=== PATIENT | female | born 1960 | race Caucasian/White ===

== ENCOUNTER 2020-02-11 16:43 | Observation (INO) ==
[2020-02-11] MEDS ORDERED: Tetan/Diph/Pertus SYR(Tdap)* 0.5 ML SYR(BOOSTRIX) use SYR contains LATEX IM ONE (17:43)
[2020-02-11 18:16] LABS: ABS Lymphocytes 1.4 10^3/ul (1.0-4.8); Eosinophil % 0.7 %; Hematocrit 38 % (35-47); Hemoglobin 12.8 g/dL (12.0-16.0); Lymphocyte % 28.4 %; Mean Corpuscular HGB Conc 34 g/dL (31-36); Mean Corpuscular Hemoglobin 32 pg (27-31); Mean Corpuscular Volume 94 fL (80-97); Mean Platelet Volume 6.2 fL (7.4-10.4); Platelet Count 256 10^3/uL (150-450); Red Blood Count 4.05 10^6 /uL (3.70-4.87); Red Cell Distribution Width 13 % (10-15); White Blood Count 4.9 10^3/uL (3.5-10.8)
[2020-02-11 18:40] LABS: Albumin 4.5 g/dL (3.2-5.2); Albumin/Globulin Ratio 1.4 (1-3); BUN/Creatinine Ratio 7.5 (8-20); C Reactive Protein 4.31 mg/L (<8.01); Calcium 9.4 mg/dL (8.6-10.3); EGFR African American 109.8 (>60); EGFR Non-African American 90.7 (>60); Globulin 3.2 g/dL (2-4); Potassium 3.7 mmol/L (3.5-5.0); Total Bilirubin 0.4 mg/dL (0.2-1.0); Total Protein 7.7 g/dL (6.4-8.9)
[2020-02-11] MEDS ORDERED: NS 0.9% 1000 ml BAG 1,000 ML IV ONE (19:11)
[2020-02-12] MEDS ORDERED: Ondansetron ODT 4 mg TAB 4 MG TAB PO ONE (06:58)
[2020-02-12] MEDS ORDERED: LORazepam 2 mg VIAL 1 ml IV PUSH SCH (09:00)
[2020-02-12] MEDS ORDERED: Lorazepam PYXIS KEY PRN (09:04)
[2020-02-12] MEDS: Heparin 5000 UNITS/ML 1 mL VIAL SUBCUT SCH ×2 (16:06→21:58)
[2020-02-12] MEDS: Thiamine 100 MG/ML 2 ml VIAL 500 MG in NS 0.9% 250 ml 250 ML IV SCH ×2 (16:06→21:47)
[2020-02-12 16:43] LABS: TSH (Thyroid Stimulating Horm) 1.08 mcIU/mL (0.34-5.60)
[2020-02-12 16:45] LABS: Free T4 1.01 ng/dL (0.61-1.12)
[2020-02-13] MEDS: Heparin 5000 UNITS/ML 1 mL VIAL SUBCUT SCH ×2 (05:54→16:32)
[2020-02-13] MEDS: Thiamine 100 MG/ML 2 ml VIAL 500 MG in NS 0.9% 250 ml 250 ML IV SCH (05:55)
[2020-02-13 06:09] LABS: ABS Eosinophils 0.1 10^3/ul (0-0.6); ABS Lymphocytes 1.5 10^3/ul (1.0-4.8); Eosinophil % 2.1 %; Hematocrit 36 % (35-47); Hemoglobin 12.2 g/dL (12.0-16.0); Lymphocyte % 33.4 %; Mean Corpuscular HGB Conc 34 g/dL (31-36); Mean Corpuscular Hemoglobin 32 pg (27-31); Mean Corpuscular Volume 92 fL (80-97); Mean Platelet Volume 6.5 fL (7.4-10.4); Platelet Count 254 10^3/uL (150-450); Red Blood Count 3.87 10^6 /uL (3.70-4.87); Red Cell Distribution Width 13 % (10-15); White Blood Count 4.4 10^3/uL (3.5-10.8)
[2020-02-13 06:33] LABS: Albumin/Globulin Ratio 1.4 (1-3); BUN/Creatinine Ratio 14.1 (8-20); Calcium 9.5 mg/dL (8.6-10.3); EGFR African American 115.7 (>60); EGFR Non-African American 95.6 (>60); Globulin 2.8 g/dL (2-4); Potassium 3.6 mmol/L (3.5-5.0); Total Protein 6.8 g/dL (6.4-8.9)
[2020-02-13 14:43] VITALS: BP 118/76
[2020-02-14 17:34] LABS: Albumin 3.4 g/dL (3.4-4.7); Albumin/Globulin Ratio 1.02; Gamma Globulin 1.1 g/dL (0.6-1.6); Total Protein(PEP) 6.7 g/dL (6.3 - 7.9)
== END 2020-02-13 16:38 | disposition home or self-care (01) ==
LOC: ED 16:43 → MEDTELE 16:43
PROVIDERS: ADMIT Internal Medicine; ATTEND Hospitalist

== ENCOUNTER 2022-02-21 21:47 | Inpatient (IN) ==
[2022-02-21 23:49] LABS: ABS Lymphocytes 1.2 10^3/ul (1.0-4.8); ABS Monocytes 0.8 10^3/ul (0-0.8); ABS Neutrophils 3.4 10^3/ul (1.5-7.7); Eosinophil % 0.2 %; Hematocrit 38 % (35-47); Hemoglobin 12.6 g/dL (12.0-16.0); Lymphocyte % 22.3 %; Mean Corpuscular HGB Conc 33 g/dL (31-36); Mean Corpuscular Hemoglobin 33 pg (27-31); Mean Corpuscular Volume 99 fL (80-97); Mean Platelet Volume 7.4 fL (7.4-10.4); Platelet Count 117 10^3/uL (150-450); Red Blood Count 3.85 10^6 /uL (3.70-4.87); Red Cell Distribution Width 14 % (10-15); White Blood Count 5.4 10^3/uL (3.5-10.8)
[2022-02-21 23:53] LABS: Urine Appearance Cloudy; Urine Bilirubin Negative (Negative); Urine Blood Negative (Negative); Urine Color Yellow; Urine Glucose Negative (Negative); Urine Ketones Negative (Negative); Urine Nitrite Negative (Negative); Urine Protein Negative (Negative); Urine Specific Gravity 1.003 (1.002-1.030); Urine Urobilinogen Negative (Negative)
[2022-02-21 23:58] LABS: Activated Partial Thrombo Time 32.8 seconds (26.0-38.0); INR 1.1 (0.86-1.15)
[2022-02-22] MEDS ORDERED: diazePAM INJ CARPUJECT 5 MG/ML SYRINGE IV ONE (00:27)
[2022-02-22] MEDS ORDERED: Thiamine 100 MG/ML 2 ml VIAL 100 MG, Folic Acid IV 1 MG, Multiple Vitamin IV ADULT 10 M... IV ONE (00:27)
[2022-02-22] MEDS ORDERED: Lactated Ringers 1000 ml BAG 1,000 ML IV ONE ×2 (00:27→01:42)
[2022-02-22] MEDS ORDERED: diazePAM INJ CARPUJECT 5 MG/ML SYRINGE ONE (00:27)
[2022-02-22 00:35] LABS: Magnesium 1.6 mg/dL (1.9-2.7)
[2022-02-22 00:37] LABS: Albumin 4.3 g/dL (3.2-5.2); Albumin/Globulin Ratio 1.4 (1-3); Calcium 9.3 mg/dL (8.6-10.3); Magnesium 1.6 mg/dL (1.9-2.7); Potassium 3.3 mmol/L (3.5-5.0); Total Bilirubin 0.8 mg/dL (0.2-1.0); Total Protein 7.3 g/dL (6.4-8.9); eGFR CKD-EPI 100.6 (>60)
[2022-02-22 00:53] LABS: TSH Ultra Thyroid Stim Horm 1.3 mcIU/mL (0.34-5.60)
[2022-02-22 00:55] LABS: Free T4 0.93 ng/dL (0.61-1.12)
[2022-02-22] MEDS ORDERED: Magnesium Sulfate 2 gm BAG 2 GM/50 ML BAG IVPB ONE (02:28)
[2022-02-22] MEDS: LORazepam 2 mg VIAL 1 ml IV SCH ×3 (03:33→12:32)
[2022-02-22] MEDS: KCL 10 MEQ/50 ML IVPREMIX 10 MEQ/50 ML BAG IV SCH ×2 (05:52→06:28)
[2022-02-22] MEDS: Multivitamins/Minerals TAB PO SCH ×2 (09:20→12:31)
[2022-02-22 10:11] LABS: Calcium 8.9 mg/dL (8.6-10.3); eGFR CKD-EPI 107.5 (>60)
[2022-02-22] MEDS ORDERED: Potassium Chlor 20 meq TAB.ER PO ONE ×2 (11:52→17:00)
[2022-02-22] MEDS ORDERED: Lorazepam PYXIS KEY PRN (11:53)
[2022-02-22] MEDS ORDERED: LORazepam 2 mg VIAL 1 ml IV PUSH SCH (17:00)
[2022-02-23 07:15] LABS: Hematocrit 37 % (35-47); Hemoglobin 12.3 g/dL (12.0-16.0); Mean Corpuscular HGB Conc 34 g/dL (31-36); Mean Corpuscular Hemoglobin 34 pg (27-31); Mean Corpuscular Volume 100 fL (80-97); Red Blood Count 3.65 10^6 /uL (3.70-4.87); Red Cell Distribution Width 13 % (10-15); White Blood Count 6.3 10^3/uL (3.5-10.8)
[2022-02-23 07:16] LABS: ABS Basophils 0.1 10^3/ul (0-0.2); ABS Lymphocytes 1.1 10^3/ul (1.0-4.8); ABS Monocytes 0.8 10^3/ul (0-0.8); ABS Neutrophils 4.3 10^3/ul (1.5-7.7); Eosinophil % 0.4 %; Lymphocyte % 16.6 %
[2022-02-23 07:51] LABS: Magnesium 1.6 mg/dL (1.9-2.7); Potassium 3.6 mmol/L (3.5-5.0); eGFR CKD-EPI 106.5 (>60)
[2022-02-23 08:19] LABS: Mean Platelet Volume 7.8 fL (7.4-10.4); Platelet Count 89 10^3/uL (150-450)
[2022-02-23] MEDS: Multivitamins/Minerals TAB PO SCH (09:02)
[2022-02-23] MEDS ORDERED: Magnesium Sulfate 2 gm BAG 2 GM/50 ML BAG IVPB ONE (09:38)
[2022-02-24 06:05] LABS: ABS Eosinophils 0.1 10^3/ul (0-0.6); ABS Lymphocytes 1.2 10^3/ul (1.0-4.8); ABS Monocytes 0.8 10^3/ul (0-0.8); ABS Neutrophils 2.3 10^3/ul (1.5-7.7); Eosinophil % 1.6 %; Hematocrit 39 % (35-47); Hemoglobin 13.2 g/dL (12.0-16.0); Lymphocyte % 27.5 %; Mean Corpuscular HGB Conc 34 g/dL (31-36); Mean Corpuscular Hemoglobin 34 pg (27-31); Mean Corpuscular Volume 100 fL (80-97); Mean Platelet Volume 8.4 fL (7.4-10.4); Nucleated Red Blood Cells % 0.1; Platelet Count 101 10^3/uL (150-450); Red Blood Count 3.91 10^6 /uL (3.70-4.87); Red Cell Distribution Width 13 % (10-15); White Blood Count 4.5 10^3/uL (3.5-10.8)
[2022-02-24 06:28] LABS: Calcium 9.3 mg/dL (8.6-10.3); Magnesium 1.5 mg/dL (1.9-2.7); Potassium 3.3 mmol/L (3.5-5.0); eGFR CKD-EPI 109.6 (>60)
[2022-02-24] MEDS ORDERED: Magnesium Sulfate IV 3 GM in NS 0.9% 100 ml BAG 100 ML IVPB ONE (07:12)
[2022-02-24] MEDS ORDERED: Potassium Chlor 20 meq TAB.ER PO ONE ×2 (07:14→13:00)
[2022-02-24] MEDS: Multivitamins/Minerals TAB PO SCH (07:56)
[2022-02-24] MEDS ORDERED: Magnesium Sulfate 2 GM IV (Premix) IVPB ONE (08:00)
[2022-02-24] MEDS ORDERED: Magnesium Sulfate 1 GM IV 1 GM/100 ML BAG IV ONE (09:00)
[2022-02-25 05:03] LABS: Hematocrit 37 % (35-47); Hemoglobin 12.3 g/dL (12.0-16.0); Mean Corpuscular HGB Conc 34 g/dL (31-36); Mean Corpuscular Hemoglobin 33 pg (27-31); Mean Corpuscular Volume 100 fL (80-97); Mean Platelet Volume 7.7 fL (7.4-10.4); Platelet Count 152 10^3/uL (150-450); Red Blood Count 3.68 10^6 /uL (3.70-4.87); Red Cell Distribution Width 13 % (10-15); White Blood Count 4.7 10^3/uL (3.5-10.8)
[2022-02-25 05:33] LABS: Calcium 9.5 mg/dL (8.6-10.3); Magnesium 1.5 mg/dL (1.9-2.7); Potassium 3.8 mmol/L (3.5-5.0); eGFR CKD-EPI 105.1 (>60)
[2022-02-25] MEDS ORDERED: Magnesium Sulfate 2 gm BAG 2 GM/50 ML BAG IVPB ONE (07:15)
[2022-02-25 08:49] LABS: ABS Eosinophils 0.1 10^3/ul (0-0.6); ABS Lymphocytes 1.4 10^3/ul (1.0-4.8); ABS Monocytes 1.2 10^3/ul (0-0.8); ABS Neutrophils 1.9 10^3/ul (1.5-7.7); Lymphocyte % 30.6 %; Macrocytosis 1+; Nucleated Red Blood Cells % 0.1
[2022-02-25] MEDS ORDERED: Magnesium Sulfate 1 GM IV 1 GM/100 ML BAG IV ONE (09:15)
[2022-02-25] MEDS: Multivitamins/Minerals TAB PO SCH (09:57)
[2022-02-25 14:43] VITALS: BP 128/84
== END 2022-02-25 16:15 | disposition home health service (06) | DRG 100 ==
LOC: ED 21:47 → SUATTDRO 02-22 02:39 → EDHOLD 02-22 02:39 → MERGE 02-22 02:39 → MED 02-22 08:49
PROVIDERS: ADMIT Internal Medicine; ATTEND Hospitalist

== ENCOUNTER 2022-09-04 16:12 | Inpatient (IN) ==
[2022-09-04] MEDS ORDERED: Morphine 4 MG/ML VIAL (1 ml) IV ONE (16:42)
[2022-09-04 16:57] LABS: ABS Lymphocytes 0.8 10^3/ul (1.0-4.8); ABS Monocytes 0.4 10^3/ul (0-0.8); ABS Neutrophils 8.1 10^3/ul (1.5-7.7); Hematocrit 34 % (35-47); Hemoglobin 11.4 g/dL (12.0-16.0); Lymphocyte % 8.6 %; Mean Corpuscular HGB Conc 34 g/dL (31-36); Mean Corpuscular Hemoglobin 34 pg (27-31); Mean Corpuscular Volume 102 fL (80-97); Mean Platelet Volume 6.7 fL (7.4-10.4); Nucleated Red Blood Cells % 0.1; Platelet Count 289 10^3/uL (150-450); Red Blood Count 3.32 10^6 /uL (3.70-4.87); Red Cell Distribution Width 13 % (10-15); White Blood Count 9.3 10^3/uL (3.5-10.8)
[2022-09-04 17:04] LABS: INR 1.2 (0.88-1.18)
[2022-09-04 17:48] LABS: Albumin 4.5 g/dL (3.2-5.2); Albumin/Globulin Ratio 1.9 (1-3); Calcium 8.5 mg/dL (8.6-10.3); Globulin 2.4 g/dL (2-4); Potassium 3.8 mmol/L (3.5-5.0); Total Bilirubin 0.5 mg/dL (0.2-1.0); Total Protein 6.9 g/dL (6.4-8.9)
[2022-09-04] MEDS ORDERED: NS 0.9% 1000 ml BAG 1,000 ML IV SCH (18:45)
[2022-09-04] MEDS ORDERED: Lorazepam PYXIS KEY PRN (19:07)
[2022-09-04 19:28] LABS: Magnesium 1.6 mg/dL (1.9-2.7)
[2022-09-04] MEDS: Morphine 2 MG/ML SYRINGE IV PRN (20:03)
[2022-09-04] MEDS: Multivitamins/Minerals TAB PO SCH (20:05)
[2022-09-04] MEDS: LORazepam 2 mg VIAL 1 ml IV PUSH SCH (20:18)
[2022-09-05] MEDS: LORazepam 2 mg VIAL 1 ml IV PUSH SCH ×7 (02:13→22:35)
[2022-09-05] MEDS: Morphine 2 MG/ML SYRINGE IV PRN ×2 (06:17→16:20)
[2022-09-05 07:10] LABS: Calcium 8.9 mg/dL (8.6-10.3); Potassium 3.6 mmol/L (3.5-5.0)
[2022-09-05] MEDS ORDERED: Magnesium Sulf 4 GM/100 ML IV 4,000 MG/100 ML BAG IVPB ONE (07:55)
[2022-09-05 09:17] LABS: Hematocrit 29 % (35-47); Hemoglobin 10.5 g/dL (12.0-16.0); Mean Platelet Volume 6.8 fL (7.4-10.4); Platelet Count 236 10^3/uL (150-450)
[2022-09-05 09:25] LABS: INR 1.13 (0.88-1.18)
[2022-09-05] MEDS: Multivitamins/Minerals TAB PO SCH (10:11)
[2022-09-05] MEDS: Acetaminophen IV 1 GM/100ML 1,000 MG/100 ML BAG IV PRN ×2 (10:14→22:38)
[2022-09-05 16:42] LABS: Magnesium 1.4 mg/dL (1.9-2.7)
[2022-09-05] MEDS: NS 0.9% 1000 ml BAG 1,000 ML IV SCH (20:42)
[2022-09-05] MEDS ORDERED: Heparin 5000 UNITS/ML 1 mL VIAL SUBCUT SCH (21:00)
[2022-09-06] MEDS: LORazepam 2 mg VIAL 1 ml IV PUSH SCH ×6 (00:20→12:18)
[2022-09-06] MEDS: NS 0.9% 1000 ml BAG 1,000 ML IV SCH ×2 (02:30→23:04)
[2022-09-06 05:44] LABS: ABS Basophils 0.1 10^3/ul (0-0.2); ABS Lymphocytes 1.2 10^3/ul (1.0-4.8); ABS Monocytes 0.8 10^3/ul (0-0.8); ABS Neutrophils 5.8 10^3/ul (1.5-7.7); Hematocrit 28 % (35-47); Hemoglobin 9.7 g/dL (12.0-16.0); Lymphocyte % 15.4 %; Mean Corpuscular HGB Conc 35 g/dL (31-36); Mean Corpuscular Hemoglobin 35 pg (27-31); Mean Corpuscular Volume 100 fL (80-97); Mean Platelet Volume 6.9 fL (7.4-10.4); Platelet Count 193 10^3/uL (150-450); Red Blood Count 2.82 10^6 /uL (3.70-4.87); Red Cell Distribution Width 13 % (10-15); White Blood Count 7.9 10^3/uL (3.5-10.8)
[2022-09-06 06:24] LABS: Calcium 8.3 mg/dL (8.6-10.3); Magnesium 1.8 mg/dL (1.9-2.7); Potassium 3.2 mmol/L (3.5-5.0)
[2022-09-06] MEDS: Multivitamins/Minerals TAB PO SCH (07:28)
[2022-09-06] MEDS ORDERED: Magnesium Sulfate IV 1GM/100ML 1 GM/100 ML BAG IV ONE (07:33)
[2022-09-06] MEDS ORDERED: Magnesium Sulfate 2 gm BAG 2 GM/50 ML BAG IVPB ONE (08:15)
[2022-09-06] MEDS: KCL 20 MEQ/100 ML IVPREMIX 20 MEQ/100 ML BAG IV SCH ×2 (10:02→12:04)
[2022-09-06] MEDS ORDERED: Propofol 10 MG/ML 20 ML BTL ONE (13:23)
[2022-09-06] MEDS ORDERED: Rocuronium 50 mg VIAL 10 mg/ml 5 ml VIAL (50 mg) ONE (13:23)
[2022-09-06] MEDS ORDERED: ceFAZolin 2 GM PREMIX 2 GM/50 ML BAG ONE (13:39)
[2022-09-06] MEDS ORDERED: KCL 10 MEQ/50 ML IVPREMIX 10 MEQ/50 ML BAG IV ONE (14:14)
[2022-09-06] MEDS ORDERED: Midazolam 2 mg/2 ml VIAL 1 mg/ml 2 ml VIAL (2 mg) ONE (14:51)
[2022-09-06 15:14] LABS: TSH Ultra Thyroid Stim Horm 2.38 mcIU/mL (0.34-5.60)
[2022-09-06 15:28] LABS: Folate 12.89 ng/mL (5.90-24.80)
[2022-09-06] MEDS ORDERED: fentaNYL 100 mcg/2 ml 50 MCG/ML VIAL ONE ×2 (15:33→15:49)
[2022-09-06] MEDS ORDERED: Bupivacaine 0.5% SDV PF 30ML VIAL ONE (15:47)
[2022-09-06] MEDS ORDERED: Acetaminophen IV 1 GM/100ML 1,000 MG/100 ML BAG IV ONE (15:53)
[2022-09-06] MEDS ORDERED: Dexamethasone IV 4 MG/ML VIAL 1 ml VIAL ONE (15:59)
[2022-09-06] MEDS ORDERED: Ondansetron 4 mg VIAL 2 MG/ML 2 ml VIAL ONE (15:59)
[2022-09-06] MEDS ORDERED: Naloxone 0.4 mg VIAL 0.4 mg/ml 1 ml VIAL IV PRN (16:51)
[2022-09-06] MEDS ORDERED: fentaNYL 100 mcg/2 ml 50 MCG/ML VIAL IV PRN (16:51)
[2022-09-06] MEDS ORDERED: Ondansetron 4 mg VIAL 2 MG/ML 2 ml VIAL IV PRN (16:51)
[2022-09-06 17:12] LABS: Hematocrit 28 % (35-47); Hemoglobin 9.2 g/dL (12.0-16.0)
[2022-09-07] MEDS: LORazepam 2 mg VIAL 1 ml IV PUSH SCH ×3 (01:03→11:04)
[2022-09-07] MEDS: ceFAZolin 1 GM X 3 DOSES POST-OP Q8H (AddVan) IVPB SCH ×3 (01:07→14:58)
[2022-09-07] MEDS: Acetaminophen IV 1 GM/100ML 1,000 MG/100 ML BAG IV PRN ×2 (04:10→16:21)
[2022-09-07 06:55] LABS: ABS Lymphocytes 0.7 10^3/ul (1.0-4.8); ABS Monocytes 1.1 10^3/ul (0-0.8); ABS Neutrophils 8.7 10^3/ul (1.5-7.7); Hematocrit 22 % (35-47); Hemoglobin 7.9 g/dL (12.0-16.0); Lymphocyte % 6.6 %; Mean Corpuscular HGB Conc 36 g/dL (31-36); Mean Corpuscular Hemoglobin 36 pg (27-31); Mean Corpuscular Volume 100 fL (80-97); Mean Platelet Volume 7.6 fL (7.4-10.4); Platelet Count 180 10^3/uL (150-450); Red Blood Count 2.19 10^6 /uL (3.70-4.87); Red Cell Distribution Width 13 % (10-15); White Blood Count 10.5 10^3/uL (3.5-10.8)
[2022-09-07 07:36] LABS: Calcium 8.1 mg/dL (8.6-10.3); Magnesium 1.9 mg/dL (1.9-2.7); Potassium 3.7 mmol/L (3.5-5.0); eGFR CKD-EPI 105.5 (>60)
[2022-09-07] MEDS: Multivitamins/Minerals TAB PO SCH (09:04)
[2022-09-07] MEDS ORDERED: Petroleum Jelly 1.75 Oz (small jar) TOPICAL PRN (14:30)
[2022-09-07] MEDS ORDERED: Petrolatum 5 gm PACKET TOPICAL PRN (15:00)
[2022-09-07] MEDS ORDERED: Enoxaparin 40 MG/0.4 ML SYR SUBCUT SCH (16:00)
[2022-09-07] MEDS ORDERED: Potassium Chlor 20 meq TAB.ER PO ONE (17:04)
[2022-09-07] MEDS: Nystatin SUSPENSION 100,000 UNITS/ML UDC PO SCH (21:41)
[2022-09-08 06:16] LABS: Hematocrit 19 % (35-47); Hemoglobin 6.3 g/dL (12.0-16.0); Mean Corpuscular HGB Conc 34 g/dL (31-36); Mean Corpuscular Hemoglobin 34 pg (27-31); Mean Corpuscular Volume 101 fL (80-97); Mean Platelet Volume 6.8 fL (7.4-10.4); Platelet Count 244 10^3/uL (150-450); Red Blood Count 1.84 10^6 /uL (3.70-4.87); Red Cell Distribution Width 13 % (10-15); White Blood Count 13.1 10^3/uL (3.5-10.8)
[2022-09-08 06:49] LABS: ABS Basophils 0.1 10^3/ul (0-0.2); ABS Monocytes 1.8 10^3/ul (0-0.8); ABS Neutrophils 9.2 10^3/ul (1.5-7.7); Eosinophil % 0.2 %; Lymphocyte % 15.4 %
[2022-09-08 06:50] LABS: Calcium 8.3 mg/dL (8.6-10.3); Magnesium 1.6 mg/dL (1.9-2.7); Potassium 3.6 mmol/L (3.5-5.0); eGFR CKD-EPI 104.2 (>60)
[2022-09-08] MEDS ORDERED: Potassium Chlor 20 meq TAB.ER PO ONE (07:06)
[2022-09-08 07:42] LABS: Hematocrit 20 % (35-47); Hemoglobin 6.5 g/dL (12.0-16.0)
[2022-09-08] MEDS ORDERED: KCL 20 MEQ/100 ML IVPREMIX 20 MEQ/100 ML BAG IV ONE (07:48)
[2022-09-08] MEDS: Nystatin SUSPENSION 100,000 UNITS/ML UDC PO SCH ×2 (07:49→21:48)
[2022-09-08] MEDS: Multivitamins/Minerals TAB PO SCH (07:49)
[2022-09-08] MEDS ORDERED: Magnesium Sulfate IV 3 GM in NS 0.9% 100 ml BAG 100 ML IVPB ONE (08:00)
[2022-09-08] MEDS ORDERED: Pantoprazole VIAL 40 MG VIAL IV SCH (08:00)
[2022-09-08] MEDS: Pantoprazole VIAL 40 MG VIAL IV SCH ×2 (08:24→21:48)
[2022-09-08] MEDS ORDERED: Polyethylene Glycol 3350 17 GM PACKET PO ONE ×2 (09:03→11:00)
[2022-09-08] MEDS ORDERED: Morphine 2 MG/ML SYRINGE IV PRN (09:08)
[2022-09-08] MEDS: Senna TAB 8.6 mg TAB PO SCH (10:44)
[2022-09-08 14:02] LABS: Hematocrit 23 % (35-47); Hemoglobin 7.6 g/dL (12.0-16.0)
[2022-09-08 20:20] LABS: Hematocrit 24 % (35-47); Hemoglobin 8.1 g/dL (12.0-16.0)
[2022-09-08] MEDS: Magnesium Hydroxide LIQ 30 ML UDC PO PRN (21:48)
[2022-09-09 02:04] LABS: Hematocrit 23 % (35-47); Hemoglobin 7.8 g/dL (12.0-16.0)
[2022-09-09] MEDS ORDERED: KCL 20 MEQ/100 ML IVPREMIX 20 MEQ/100 ML BAG IV ONE (07:44)
[2022-09-09] MEDS ORDERED: Magnesium Sulfate 2 gm BAG 2 GM/50 ML BAG IVPB ONE (07:45)
[2022-09-09 08:17] LABS: Hematocrit 25 % (35-47); Hemoglobin 8.5 g/dL (12.0-16.0); Mean Corpuscular HGB Conc 34 g/dL (31-36); Mean Corpuscular Hemoglobin 33 pg (27-31); Mean Corpuscular Volume 95 fL (80-97); Mean Platelet Volume 6.4 fL (7.4-10.4); Platelet Count 307 10^3/uL (150-450); Red Cell Distribution Width 18 % (10-15); White Blood Count 10.7 10^3/uL (3.5-10.8)
[2022-09-09 08:25] LABS: ABS Basophils 0.1 10^3/ul (0-0.2); ABS Lymphocytes 1.7 10^3/ul (1.0-4.8); ABS Monocytes 1.9 10^3/ul (0-0.8); ABS Neutrophils 6.9 10^3/ul (1.5-7.7); Eosinophil % 0.4 %; Lymphocyte % 16.4 %
[2022-09-09] MEDS ORDERED: Potassium Chlor 20 meq TAB.ER PO SCH (09:00)
[2022-09-09 09:20] LABS: Calcium 8.5 mg/dL (8.6-10.3); Magnesium 1.8 mg/dL (1.9-2.7); Potassium 3.6 mmol/L (3.5-5.0); eGFR CKD-EPI 107.5 (>60)
[2022-09-09] MEDS: Cholecalciferol (VIT D3) 400 units TAB PO SCH (10:13)
[2022-09-09] MEDS: Multivitamins/Minerals TAB PO SCH (10:13)
[2022-09-09] MEDS: Senna TAB 8.6 mg TAB PO SCH (10:13)
[2022-09-09] MEDS: Potassium Chlor 20 meq TAB.ER PO SCH (10:13)
[2022-09-09] MEDS: Nystatin SUSPENSION 100,000 UNITS/ML UDC PO SCH ×2 (10:17→20:23)
[2022-09-09] MEDS: Pantoprazole VIAL 40 MG VIAL IV SCH ×2 (10:19→20:23)
[2022-09-09] MEDS: Magnesium Hydroxide LIQ 30 ML UDC PO PRN (10:49)
[2022-09-09] MEDS ORDERED: Polyethylene Glycol 3350 17 GM PACKET PO PRN (11:46)
[2022-09-09] MEDS: Enoxaparin 40 MG/0.4 ML SYR SUBCUT SCH (12:29)
[2022-09-09 16:17] LABS: Hematocrit 26 % (35-47); Hemoglobin 8.4 g/dL (12.0-16.0)
[2022-09-09] MEDS ORDERED: Lorazepam PYXIS KEY PRN (16:45)
[2022-09-09] MEDS: LORazepam 2 mg VIAL 1 ml IV PUSH PRN (23:26)
[2022-09-10 06:44] LABS: Hematocrit 24 % (35-47); Hemoglobin 8.4 g/dL (12.0-16.0); Mean Corpuscular HGB Conc 35 g/dL (31-36); Mean Corpuscular Hemoglobin 34 pg (27-31); Mean Corpuscular Volume 98 fL (80-97); Mean Platelet Volume 7.1 fL (7.4-10.4); Platelet Count 345 10^3/uL (150-450); Red Blood Count 2.47 10^6 /uL (3.70-4.87); Red Cell Distribution Width 18 % (10-15); White Blood Count 8.6 10^3/uL (3.5-10.8)
[2022-09-10 06:46] LABS: ABS Lymphocytes 1.2 10^3/ul (1.0-4.8); ABS Monocytes 1.6 10^3/ul (0-0.8); ABS Neutrophils 5.8 10^3/ul (1.5-7.7); Eosinophil % 0.5 %; Lymphocyte % 13.5 %
[2022-09-10 07:16] LABS: Calcium 8.6 mg/dL (8.6-10.3); Magnesium 1.6 mg/dL (1.9-2.7); Potassium 3.7 mmol/L (3.5-5.0)
[2022-09-10] MEDS ORDERED: Magnesium Sulfate 2 gm BAG 2 GM/50 ML BAG IVPB ONE (07:19)
[2022-09-10] MEDS ORDERED: Potassium Chloride LIQUID 20 MEQ/15 ML LIQUID PO ONE (07:22)
[2022-09-10 07:39] LABS: Phosphorus 1.7 mg/dL (2.5-5.0)
[2022-09-10] MEDS ORDERED: Enoxaparin 40 MG/0.4 ML SYR ONE (08:22)
[2022-09-10] MEDS: Pantoprazole VIAL 40 MG VIAL IV SCH ×2 (08:27→20:49)
[2022-09-10] MEDS: Enoxaparin 40 MG/0.4 ML SYR SUBCUT SCH (08:27)
[2022-09-10] MEDS: Nystatin SUSPENSION 100,000 UNITS/ML UDC PO SCH ×2 (08:28→20:49)
[2022-09-10] MEDS: Senna TAB 8.6 mg TAB PO SCH (08:28)
[2022-09-10] MEDS: Cholecalciferol (VIT D3) 400 units TAB PO SCH (08:28)
[2022-09-10] MEDS: Multivitamins/Minerals TAB PO SCH (08:29)
[2022-09-10] MEDS: Potassium Chlor 20 meq TAB.ER PO SCH (08:30)
[2022-09-10] MEDS ORDERED: Ondansetron 4 mg VIAL 2 MG/ML 2 ml VIAL IV PRN (09:47)
[2022-09-10] MEDS: LORazepam 2 mg VIAL 1 ml IV PUSH PRN ×2 (12:08→21:30)
[2022-09-11 08:09] LABS: Magnesium 1.6 mg/dL (1.9-2.7); Phosphorus 2.1 mg/dL (2.5-5.0); Potassium 4.1 mmol/L (3.5-5.0); eGFR CKD-EPI 106.5 (>60)
[2022-09-11] MEDS ORDERED: Magnesium Sulfate 2 gm BAG 2 GM/50 ML BAG IVPB ONE (08:21)
[2022-09-11] MEDS: Enoxaparin 40 MG/0.4 ML SYR SUBCUT SCH (09:45)
[2022-09-11] MEDS: Nystatin SUSPENSION 100,000 UNITS/ML UDC PO SCH (09:45)
[2022-09-11] MEDS: Pantoprazole VIAL 40 MG VIAL IV SCH (09:45)
[2022-09-11] MEDS: Senna TAB 8.6 mg TAB PO SCH (09:46)
[2022-09-11] MEDS: Multivitamins/Minerals TAB PO SCH (09:49)
[2022-09-11] MEDS: Potassium Chlor 20 meq TAB.ER PO SCH (09:50)
[2022-09-11] MEDS: Cholecalciferol (VIT D3) 400 units TAB PO SCH (09:51)
[2022-09-11] MEDS: LORazepam 2 mg VIAL 1 ml IV PUSH PRN (12:14)
[2022-09-11] MEDS ORDERED: LevoCETirizine 5 mg TAB (NF) PO PRN (15:30)
[2022-09-11] MEDS: Calamine LOTION BTL TOPICAL SCH ×2 (17:00→21:41)
[2022-09-12 06:19] LABS: Hematocrit 24 % (35-47); Mean Corpuscular HGB Conc 34 g/dL (31-36); Mean Corpuscular Hemoglobin 33 pg (27-31); Mean Corpuscular Volume 96 fL (80-97); Mean Platelet Volume 6.6 fL (7.4-10.4); Platelet Count 495 10^3/uL (150-450); Red Blood Count 2.47 10^6 /uL (3.70-4.87); Red Cell Distribution Width 17 % (10-15); White Blood Count 9.7 10^3/uL (3.5-10.8)
[2022-09-12 06:23] LABS: ABS Basophils 0.1 10^3/ul (0-0.2); ABS Eosinophils 0.2 10^3/ul (0-0.6); ABS Lymphocytes 1.5 10^3/ul (1.0-4.8); ABS Monocytes 1.7 10^3/ul (0-0.8); ABS Neutrophils 6.3 10^3/ul (1.5-7.7); Eosinophil % 1.6 %; Lymphocyte % 15.7 %; Nucleated Red Blood Cells % 0.1
[2022-09-12 06:41] LABS: Calcium 9.3 mg/dL (8.6-10.3); Magnesium 1.6 mg/dL (1.9-2.7); Potassium 4.2 mmol/L (3.5-5.0); eGFR CKD-EPI 104.6 (>60)
[2022-09-12] MEDS ORDERED: Magnesium Sulfate IV 3 GM in NS 0.9% 100 ml BAG 100 ML IVPB ONE (07:44)
[2022-09-12] MEDS: Enoxaparin 40 MG/0.4 ML SYR SUBCUT SCH (10:03)
[2022-09-12] MEDS: Cholecalciferol (VIT D3) 400 units TAB PO SCH (10:04)
[2022-09-12] MEDS: Multivitamins/Minerals TAB PO SCH (10:04)
[2022-09-12] MEDS: Senna TAB 8.6 mg TAB PO SCH (10:04)
[2022-09-12] MEDS: Potassium Chlor 20 meq TAB.ER PO SCH (10:05)
[2022-09-12] MEDS: Calamine LOTION BTL TOPICAL SCH ×2 (10:06→15:26)
[2022-09-12 11:53] VITALS: BP 102/69
[2022-09-12] MEDS ORDERED: ceFAZolin 1 GM in Dextrose 1 GM/50 ML BAG IVPB SCH (12:00)
[2022-09-12 15:37] LABS: Ferritin 243.8 ng/mL (11-307)
== END 2022-09-12 16:30 | disposition home or self-care (01) | DRG 481 ==
LOC: ED 16:12 → EDHOLD 17:51 → SUATTDRO 17:51 → EDHOLD 09-05 06:02 → SSU 09-05 08:33
PROVIDERS: ADMIT Internal Medicine; ATTEND Hospitalist